=== PATIENT | female | born 1955 | race Caucasian/White ===

== ENCOUNTER → 2016-11-24 | Outpatient (CLI) | payer BC ==
--- NOTE | 2016-11-24 10:58 | US ---
Ultrasound Right Extremity Nonvascular HISTORY: Palpable lump in the right lower leg. R22.41 FINDINGS: Ultrasound imaging of the anterior lateral right lower leg merino, calf region was performed by the foxing cutting machine operator and me in the area of palpable concern. There is normal subcutaneous fat and under lying muscle without evidence of focal fluid collection or definite mass. IMPRESSION: 1. No evidence of definite mass in the right lower leg anterior lateral merino, calf region. 2. If palpable abnormality persists, consider additional imaging with MRI which is a more sensitive s tudy.
== END ==
LOC: FIMAGING 09:46
PROVIDERS: ATTEND Nurse Practitioner Family
DX: R22.41 Localized swelling, mass and lump, right lower limb (principal)

== ENCOUNTER → 2017-03-06 | Outpatient (CLI) | payer BC | LOC: FIMAGING 09:29 | DX: Z12.31 Encounter for screening mammogram for malignant neoplasm of breast (principal); Z85.3 Personal history of malignant neoplasm of breast | CPT/HCPCS: G0202 ==

== ENCOUNTER 2017-09-30 14:41 | Emergency (ER) | payer BC ==
[2017-09-30 14:46] VITALS: RESP 16
--- NOTE | 2017-09-30 15:09 | EDPHY ---
H & P Time Seen by Provider: 09/30/17 14:58 HPI/ROS: CHIEF COMPLAINT: Possible blood clot HISTORY OF PRESENT ILLNESS: This patient is a non-anticoagulated 62 year old female with history of breast cancer complaining of swelling and bruising of the right arm onset 4 days ago. 4 days ago, she awoke with a localized area of swelling on midforearm. Her at bedside states it appeared like a spider bite initially,and has subsequently decreased in size. 3 days ago, the surrounding area appeared bruised. The patient denies any itching or pain associated. She does not remember any trauma to the arm. She visited urgent care, and staff recommended she present to the emergency department to r/o a blood clot. She denies any chest pain, shortness of breath, pain or swelling in her calf. REVIEW OF SYSTEMS: A 10 point review of systems was performed and is negative with the exception of the elements mentioned in the history of present illness. Past Medical/Surgical History: 1. History of breast cancer (Anastrozole) Social History: and daughter at bedside. Nonsmoker. Lives in [place]. Smoking Status: Never smoked Physical Exam: Alert and oriented, pleasant Extremities: 1cm mobile area of firm swelling to mid-forearm with adjacent ecchymosis. No erythema and no arm edema Skin: intact, no erythema Neuro: motor/sensory intact Vascular: 2+ radial pulse Constitutional: Initial Vital Signs Temperature (C) 37.0 C 09/30/17 14:43 Heart Rate 86 09/30/17 14:43 Respiratory Rate 16 09/30/17 14:43 Blood Pressure 146/70 H 09/30/17 14:43 O2 Sat (%) 99 09/30/17 14:43 O2 Delivery Mode Room Air Allergies/Adverse Reactions: NSAIDS (Non-Steroidal Anti-Inflamma Allergy (Verified 04/09/15 14:05) anti-inflammatories Allergy (Uncoded 02/22/15 16:34) Home Medications: Medication Instructions Recorded Anastrozole 09/30/17 Medical Decision Making ED Course/Re-evaluation: 62 y/o female with history of breast cancer presents with a 1cm mobile area of firm swelling to mid-forearm with adjacent ecchymosis. She is concerned regarding the possibility of a blood clot. This is most c/w hematoma, no clinical suspicion of DVT. I discussed the utility of ultrasound vs further observation at home. She is comfortable with discharge home and monitoring the area herself. Followup and return precautions discussed including signs of infection. She and her are comfortable with this plan. Differential Diagnosis: Includes though not limited to DVT, cellulitis, abscess, superficial thrombophlebitis. Departure - Departure Disposition: Home, Routine, Self-Care Clinical Impression: Hematoma of arm Qualifiers: Encounter type: initial encounter Laterality: right Qualified Code(s): S40.021A - Contusion of right upper arm, initial encounter Condition: Good Instructions: Hematoma (ED) Additional Instructions: 1. Follow up with Dr. Jones this week for any continued concerns. 2. Return to the emergency department if you develop increased or whole arm swelling, increased pain, redness, warmth, or drainage, or if you develop chest pain, shortness of breath, pain or swelling in your calves, or other worsening of condition. Referrals: Taras Jones MD [Medical Doctor] - As per Instructions Report Scribed for: Aurea Sanchez Report Scribed by: Genie Vance Date of Report: 09/30/17 Time of Report: 15:10 Physician Review and Approval Statement: 09/30/17 15:10 Portions of this note were transcribed by a medical office secretary. I personally performed a history, physical exam, medical decision making, and confirmed accuracy of information the transcribed note.
[2017-09-30 15:21] VITALS: BP 126/77; PULSE 83; TEMP 97.9; O2SAT 95
== END 2017-09-30 15:22 | disposition home or self-care (01) ==
DX: M79.81 Nontraumatic hematoma of soft tissue (principal); Z85.3 Personal history of malignant neoplasm of breast

== ENCOUNTER → 2018-03-07 | Outpatient (CLI) | payer BC | LOC: FIMAGING 09:20 | PROVIDERS: ATTEND Internal Medicine Hematology & Oncology | DX: Z12.31 Encounter for screening mammogram for malignant neoplasm of breast (principal); Z80.3 Family history of malignant neoplasm of breast ==

== ENCOUNTER → 2018-10-18 | Outpatient (CLI) | payer BC ==
[~2018-10-18] MED LIST: DEPO METHYLPREDNISOLONE 80 MG/ML SDV ONE; IOPAMIDOL (ISOVUE 370) 100 ML BTL IV ONE; LIDOCAINE 1% 300 MG/30 ML SDV ONE; ROPIVACAINE HCL 150 MG/30 ML INJ ONE
== END ==
LOC: FIMAGING 10:16
PROVIDERS: ATTEND Orthopaedic Surgery
PROC: 3E0U3GC Introduction of Other Therapeutic Substance into Joints, Percutaneous Approach (ICD-10-PCS; principal; 2018-10-18)
DX: M25.552 Pain in left hip (principal)
CPT/HCPCS: J1040; J2795; Q9967

== ENCOUNTER → 2018-11-27 | Outpatient (CLI) | payer BC ==
[~2018-11-27] MED LIST changes: -DEPO METHYLPREDNISOLONE 80 MG/ML SDV ONE; -ROPIVACAINE HCL 150 MG/30 ML INJ ONE
== END ==
LOC: FIMAGING 10:07
PROVIDERS: ATTEND Orthopaedic Surgery
DX: M24.152 Other articular cartilage disorders, left hip (principal); M51.26 Other intervertebral disc displacement, lumbar region; M25.551 Pain in right hip; M25.552 Pain in left hip
CPT/HCPCS: Q9967

== ENCOUNTER → 2019-03-08 | Outpatient (CLI) | payer BC | LOC: FIMAGING 15:06 | PROVIDERS: ATTEND Internal Medicine Hematology & Oncology | DX: Z12.31 Encounter for screening mammogram for malignant neoplasm of breast (principal) ==